=== PATIENT | female | born 1990 | race Hispanic/Latino ===

== ENCOUNTER 2021-09-23 08:42 | Day surgery (SDC) | payer MEDICAID, OTHER, SELFPAY ==
[2021-09-23] MEDS ORDERED: hydrALAZINE 20 MG/ML VIAL SLOW IVP PRN (09:30)
== END 2021-09-23 09:50 | disposition home health service (06) ==
LOC: CSHLD/OP 08:42
PROVIDERS: ATTEND Obstetrics & Gynecology
DX: O26.853 Spotting complicating pregnancy, third trimester (principal); Z3A.38 38 weeks gestation of pregnancy
CPT/HCPCS: 99283

== ENCOUNTER 2021-09-23 12:44 | Outpatient (CLI) | payer OTHER ==
[2021-09-24 16:09] LABS: SARS-CoV-2 PCR by NAA Not Detected (NotDetected)
== END 2021-09-23 12:45 | disposition home or self-care (01) ==
LOC: CSHLAB 12:44
PROVIDERS: ATTEND Family Medicine
DX: Z20.822 Contact with and (suspected) exposure to COVID-19 (principal)
CPT/HCPCS: U0003; U0005

== ENCOUNTER 2021-09-24 23:42 | Inpatient (IN) | payer MEDICAID, OTHER, SELFPAY ==
[2021-09-25 00:10] VITALS: BMI 32.9
[2021-09-25] MEDS ORDERED: Methylergonovine 0.2 MG/ML VIAL IM PRN (00:19)
[2021-09-25] MEDS ORDERED: Lidocaine 1% (PF) 30 ML VIAL SC PRN (00:19)
[2021-09-25] MEDS ORDERED: Ibuprofen 800 MG TAB PO PRN (00:19)
[2021-09-25] MEDS ORDERED: Misoprostol 200 MCG TAB PR PRN (00:19)
[2021-09-25] MEDS ORDERED: Ondansetron PF 4 MG/2 ML Vial IVP PRN ×3 (00:19→07:59)
[2021-09-25] MEDS ORDERED: Promethazine HCl 25 MG/ML VIAL IM PRN ×2 (00:19→01:43)
[2021-09-25] MEDS ORDERED: Carboprost 250 MCG/ML AMP IM PRN (00:19)
[2021-09-25] MEDS ORDERED: hydrALAZINE 20 MG/ML VIAL SLOW IVP PRN ×2 (00:19→07:59)
[2021-09-25] MEDS: Lactated Ringer's 1,000 ML IV SCH ×2 (00:24→01:09)
[2021-09-25] MEDS ORDERED: NS w/ Oxytocin 30 units 500 ML IV SCH ×3 (00:30→07:59)
[2021-09-25 00:37] LABS: Hemoglobin 12.1 g/dL (12.0-15.5); Mean Corpuscular HGB CONC 33.9 g/dL (32.0-36.0); Mean Corpuscular Hemoglobin 27.4 pg (27.0-33.0); Mean Platelet Volume 10.8 fl (7.4-10.4); Platelet Count 238 10x3/uL (150-450); RBC Distribution Width 13.7 % (11.5-14.5); Red Blood Cell (RBC) Count 4.41 10x6/uL (3.90-5.03); White Blood Cell (WBC) Count 9.3 10x3/uL (3.5-10.5)
[2021-09-25] MEDS ORDERED: Fentanyl 2 mcg/Bup 0.1% Cadd 100 ML ONE (00:40)
[2021-09-25 01:14] LABS: Hep B Surf Ag Non-Reactive S/CO (NonReactive)
[2021-09-25 01:15] LABS: Syphilis Antibody Nonreactive (Nonreactive); Syphilis Antibody Index 0.04 S/CO (<1.00 Non-Reactive)
[2021-09-25 01:24] LABS: HBSAg Index 0.23 S/CO (0-0.99)
[2021-09-25] MEDS ORDERED: Lactated Ringer's 500 ML IV PRN (01:43)
[2021-09-25] MEDS ORDERED: diphenhydrAMINE 50 MG/ML VIAL IVP PRN (01:43)
[2021-09-25] MEDS ORDERED: Acetaminophen 325 MG TAB PO PRN (01:43)
[2021-09-25] MEDS ORDERED: Naloxone HCl 0.4 mg/ml Vial IVP PRN ×2 (01:43)
[2021-09-25] MEDS ORDERED: ePHEDrine Sulfate 50 MG/10 ML VIAL SLOW IVP PRN (01:43)
[2021-09-25] MEDS ORDERED: Moisturizing Cream (Eucerin) 113 GM JAR TOP PRN (01:43)
[2021-09-25] MEDS ORDERED: Communication Order-Pharmacy FS SCH (01:45)
[2021-09-25] MEDS ORDERED: Fentanyl 2 mcg/Bupivacaine 0.1% Cassette 100 ML EPIDURAL SCH (01:45)
[2021-09-25] MEDS ORDERED: Bupivacaine/Epinephrine 0.25% 30 ML VIAL ONE (06:00)
[2021-09-25] MEDS ORDERED: Bisacodyl 10 MG SUPP PR PRN (07:59)
[2021-09-25] MEDS ORDERED: Lanolin Ointment 7 GM TUBE TOP PRN (07:59)
[2021-09-25] MEDS ORDERED: diphenhydrAMINE 25 MG CAP PO PRN (07:59)
[2021-09-25] MEDS ORDERED: Preparation H Ointment 28 GM TUBE PR PRN (07:59)
[2021-09-25] MEDS ORDERED: Milk Of Magnesia 30 ML UDCUP PO PRN (07:59)
[2021-09-25] MEDS ORDERED: Misoprostol 200 MCG TAB VAG PRN (07:59)
[2021-09-25] MEDS ORDERED: Boostrix 0.5 ML (Tdap) VIAL IM ONE (07:59)
[2021-09-25] MEDS: Prenatal Vitamin 1 TAB PO SCH (09:32)
[2021-09-25] MEDS: Ibuprofen 800 MG TAB PO SCH ×2 (09:32→16:46)
[2021-09-25] MEDS: Docusate 100 MG CAP PO SCH ×2 (09:34→20:41)
[2021-09-25] MEDS: Ferrous Sulfate 325 MG TAB PO SCH ×2 (11:44→16:47)
[2021-09-26] MEDS: Ibuprofen 800 MG TAB PO SCH ×2 (01:34→08:50)
[2021-09-26 08:03] VITALS: BP 114/57; TEMP 97.7
[2021-09-26] MEDS: Prenatal Vitamin 1 TAB PO SCH (08:49)
[2021-09-26] MEDS: Ferrous Sulfate 325 MG TAB PO SCH (08:50)
[2021-09-26] MEDS: Docusate 100 MG CAP PO SCH (08:50)
== END 2021-09-26 13:20 | disposition home or self-care (01) | DRG 807 ==
LOC: CSHLD/OP 23:42 → CSHLD 09-25 00:17 → CSHPP 09-25 07:52
PROVIDERS: ADMIT Student in an Organized Health Care Education/Training Program; ATTEND Student in an Organized Health Care Education/Training Program
PROC: 10E0XZZ Delivery of Products of Conception, External Approach (ICD-10-PCS; principal; 2021-09-25)
PROC: 3E0334Z Introduction of Serum, Toxoid and Vaccine into Peripheral Vein, Percutaneous Approach (ICD-10-PCS; 2021-09-25)
PROC: 10907ZC Drainage of Amniotic Fluid, Therapeutic from Products of Conception, Via Natural or Artificial Opening (ICD-10-PCS; 2021-09-25)
DX: O99.02 Anemia complicating childbirth (principal); Z37.0 Single live birth; D64.9 Anemia, unspecified; O26.893 Other specified pregnancy related conditions, third trimester; Z67.21 Type B blood, Rh negative; Z3A.38 38 weeks gestation of pregnancy; Z79.82 Long term (current) use of aspirin; O69.81X0 Labor and delivery complicated by cord around neck, without compression, not applicable or unspecified; O70.0 First degree perineal laceration during delivery
CPT/HCPCS: 36415; 51702; 85027; 85461; 86780; 86850; 86900; 86901; 87340; 90384; 96372; 99285; J2590; J7120

== ENCOUNTER 2023-12-19 23:38 | Emergency (ER) | payer MEDICAID, SELFPAY ==
[2023-12-20] MEDS ORDERED: traMADol HCl 50 MG TAB ONE (02:25)
== END 2023-12-20 02:28 | disposition home or self-care (01) ==
LOC: CSHERS 23:38
DX: S60.112A Contusion of left thumb with damage to nail, initial encounter (principal); W23.0XXA Caught, crushed, jammed, or pinched between moving objects, initial encounter